=== PATIENT | female | born 1975 | race Caucasian/White ===

== ENCOUNTER 2022-08-09 20:52 | Emergency (ER) | payer OTHER ==
[~2022-08-09] VITALS: Ht 167.6 cm; Wt 77.1 kg
[~2022-08-09 20:52] MED LIST: IBUPROFEN600 MG PO; NORCO 5-325 TA1 EACH PO; SOMA350 MG PO; ZOFRAN ODT4 MG PO
[2022-08-09] MEDS ORDERED: LEVOTHYROXINE100 MCG PO (21:09)
== END 2022-08-09 21:51 | disposition home or self-care (01) ==
LOC: ED 20:52
DX: S80.01XA Contusion of right knee, initial encounter (principal); E03.9 Hypothyroidism, unspecified; Z79.899 Other long term (current) drug therapy; W01.0XXA Fall on same level from slipping, tripping and stumbling without subsequent striking against object, initial encounter
CPT/HCPCS: 73560; 99283-25

== ENCOUNTER 2023-04-16 06:26 | Day surgery (SDC) | payer OTHER ==
[2023-04-09 10:05] VITALS: BP 119/82
[~2023-04-16] VITALS: Ht 167.6 cm; Wt 80.0 kg
--- NOTE | ~2023-04-16 | OR ---
[facility] [address] [place], [place] [address] Draft DATE OF OPERATION: 04/16/2023 SURGEON: Brayan Mathews DO DRY MILL WORKER: Angeli Gonzalez M.D. PROCEDURE: Total laparoscopic hysterectomy, bilateral salpingectomy, excision of endometriosis and cystoscopy. PREOPERATIVE DIAGNOSIS: Endometriosis, abnormal uterine bleeding. POSTOPERATIVE DIAGNOSES: 1. Endometriosis with abnormal uterine bleeding. 2. Pelvic organ prolapse. 3. Prior history of tubal ligation. ANESTHESIA: General. COMPLICATIONS: None. ESTIMATED BLOOD LOSS: 20 mL. FINDINGS: Normal-appearing uterus, tubes, status post bilateral tubal ligation with Falope rings. Falope rings both still present. Normal-appearing bilateral ovaries. Cervix appears atrophic with stenotic external os. Numerous endometriosis lesions within the pelvis. Thick scarred lesions overlying the left uterosacral ligament just medial to the left ureter. Additional moderately scarred lesions overlying the right uterosacral ligament, one just anterior to the ureter and one directly overlying the right ureter as well as scattered powder blue superficial appearing lesions within the posterior cul-de-sac. INDICATIONS: The patient is a 47-year-old female with prior history of attempts at managing endometriosis and abnormal bleeding with IUD; however, IUD placement could not be PATIENT NAME: CHAD HOLT OPERATIVE REPORT DATE OF : 77 REPORT #: [id number] PHYSICIAN: BRAYAN MATHEWS DO PCP: SIA DUNNE MD REPORT IS CONFIDENTIAL AND NOT TO BE RELEASED WITHOUT AUTHORIZATION [facility] [address] [place], [place] [address] Draft completed on repeated attempts due to cervical stenosis. Due to the same reason endometrial tissue sampling could not be obtained in the office. Preoperative ultrasound showed a thin endometrial stripe at a low risk for endometrial hyperplasia. Risks and benefits of performing this procedure [facility] at a [facility] were discussed with the patient including the possible need for additional surgery if endometrial malignancy was detected postoperatively and/or if endometriosis with densely scarred involving bowel requiring robotic surgery for higher level of minimally invasive surgery. The patient verbalized understanding, strongly desires definitive surgical management, which she has consistently expressed that each of her appointments. Risks, benefits, and alternatives to laparoscopic hysterectomy, bilateral salpingectomy, excision of endometriosis, and cystoscopy were discussed, she elected to proceed. DESCRIPTION OF PROCEDURE: The patient was taken back to the operating room. She was given 2 g Ancef preoperatively. She was prepped and draped in normal fashion, positioned in dorsal lithotomy. Rangel catheter was placed. Weighted speculum was placed in the vagina. Anterior lip of the cervix was grasped with an Allis clamp. The external os of the cervix initially had to be perforated with small Hegar dilator, after which the cervix was easily sequentially dilated with Hegar dilators to accommodate VCare uterine manipulator after sounding uterus at 7.5 cm. The VCare uterine manipulator was placed without difficulty. All other instrumentation was removed from the pelvis and surgeon's gloves were changed and attention was turned to the abdomen. The infraumbilical incision was made with a scalpel under local anesthesia. This was carried down to the underlying layer of fascia with blunt and sharp dissection with Metzenbaum scissors. The fascia was grasped with hemostats, elevated and incised with Metzenbaum scissors. Inferior margin of fascia was intact with a stay suture of 0-Vicryl in a similar manner. Superior margin of fascia was tacked with a stay suture with 0-Vicryl. Peritoneum was entered bluntly. Finger sweep confirmed intraabdominal placement without adhesions and Palmira trocar was placed without difficulty. Pneumoperitoneum was achieved with CO2 gas and scope was introduced confirming intraabdominal placement and to better facilitate visualization of the pelvis. With these ports were placed, first left lower quadrant 5 mm scope after incision was made with scalpel under local anesthesia, this was performed without difficulty or complication under direct visualization; second on the right lateral aspect of the abdomen, 8 mm expanding trocar was placed without difficulty or complication under direct visualization. The patient was then placed in Trendelenburg positioning and with use of blunt graspers to retract the bowel, pelvic structures were surveyed with findings as noted above. Left distal fallopian tube was easily grasped and elevated and LigaSure device was used to cauterize and cut along the mesosalpinx excising the tube and the Falope ring to the level of the cornua at the level of the cornua, where prior transection had occurred. Utero-ovarian ligament was then cauterized and cut also using LigaSure device, which was used for the remainder case except as otherwise noted. Round ligament was cauterized and cut allowing for entry of PATIENT NAME: CHAD HOLT OPERATIVE REPORT DATE OF : 77 REPORT #: [id number] PHYSICIAN: BRAYAN MATHEWS DO PCP: SIA DUNNE MD REPORT IS CONFIDENTIAL AND NOT TO BE RELEASED WITHOUT AUTHORIZATION [address] [address] Draft the broad ligament. Anterior leaf of the broad ligament was dissected down anteromedially creating the start of the bladder flap. The posterior leaf was then dissected down posteriorly to the level of the uterosacral ligaments and medially all the way across to the right uterosacral ligament. Uterine vessels were skeletonized, cauterized, and cut. The attention was turned to the right side, in similar manner, the fimbriated end of the tube was grasped and elevated. Mesosalpinx was cauterized and cut, excising the right fallopian tube as well as the Falope ring to the level of the cornua at previous cornual transection. Tube was removed from the abdomen under direct visualization along with the ring. Right utero-ovarian ligament was then cauterized and cut. Round ligament was cauterized and cut allowing for entry into the broad ligament. Anterior leaf was dissected anteriorly to meet the prior dissection and posteriorly also to meet prior dissection. Uterine vessels were then skeletonized, cauterized, and cut. Cervicovaginal fascia was further dissected, then Harmonic Sonicision device was introduced and used to create the colpotomy, which was completed without difficulty staying within the guide of the [employer] uterine manipulator. The uterus and cervix were removed vaginally in one piece. Vaginal packing was placed. Surgeon's gloves were again changed and attention was returned to the abdomen. Pelvis was suction irrigated with warm sterile saline. Excellent hemostasis was noted. Vaginal cuff was closed using the V-Loc suture on an EndoStitch device working from right apex to left and then back towards right apex per hvac design mechanical engineer guidelines following cuff closure. Excellent hemostasis was again noted. At this point, decision was made to attempt excision of endometriosis lesions, particularly overlying the left uterosacral ligament. The ureter was well visualized lateral to the area of endometriosis, which was grasped with laparoscopic Cristina and excised using laparoscopic scissors. Underlying bleeding was noted, which was cauterized with monopolar spatula. Other endometriosis lesions were re-examined and due to significant current concern for proximity to the ureter, superficial lesions not overlying the ureter were cauterized with monopolar spatula, while deep scarring lesion overlying the ureter and superficial lesion overlying the right ureter could not be safely excised today. Tisseel hemostatic device was applied to areas of peritoneal dissection, after which excellent hemostasis was noted. Abdomen was desufflated under direct visualization. Infraumbilical skin incision fascia was closed with Vicryl in a running fashion. Stay sutures were tied overlying the initial closure and skin was closed with 4-0 Monocryl. Rangel catheter was removed, cystoscope was introduced. Bladder was inspected, noted to be intact with bubbles present in the dome. No evidence of puckering suture or bleeding were noted. Bilateral ureteral efflux was noted very quickly with clear urine efflux. All instrumentation was removed. Sponge and instrument counts were correct. The patient was taken to the recovery room in stable and satisfactory condition. PATIENT NAME: CHAD HOLT OPERATIVE REPORT DATE OF : 77 REPORT #: [id number] PHYSICIAN: BRAYAN MATHEWS DO PCP: SIA DUNNE MD REPORT IS CONFIDENTIAL AND NOT TO BE RELEASED WITHOUT AUTHORIZATION [facility] [address] [place] [id number] Draft Brayan Mathews DO EMZ/MODL /[id number] Copies: ~ PATIENT NAME: CHAD HOLT BOBO OPERATIVE REPORT DATE OF : 77 REPORT #: [id number] PHYSICIAN: BRAYAN MATHEWS DO PCP: SIA DUNNE MD REPORT IS CONFIDENTIAL AND NOT TO BE RELEASED WITHOUT AUTHORIZATION
[~2023-04-16 06:26] MED LIST changes: +LEVOTHYROXINE100 MCG PO; +NEURONTIN300 MG PO
[2023-04-16 07:20] VITALS: BP 129/63
--- NOTE | 2023-04-16 07:57 | NUR ---
5042 PT ADMITTED SOME ANXIETY. TALKED OF SHARED EXPERIENCES. CONSENTED TO [facility]. PRAYED FOR SUCCESSFUL PROCEDURE AND ABIDING PEACE.
--- NOTE | 2023-04-16 12:54 | NUR ---
04/16/23 1254 Frances Flores 1236- PT ARRIVES TO UNIT VIA STRETCHER FROM OR. PT EYES CLOSED, RESPIRATIONS ARE EVEN AND UNLABORED, NO SIGN OF DISTRESS. O2 >90% VIA RA VIA PULSE OX AT THIS TIME. WARM BLANKETS AND BEAR HUGGER USED D/T PT REPORT OF FEELING COLD/SHAKING. PT APPEARS COMFORTABLE AT THIS TIME. 1240- PT REPORTS PAIN 4/10 AT THIS TIME, [facility] [employer] GIVES FENTANYL (SEE BLUE SHEET). 1246- 2 L OF O2 VIA NC IN PLACE D/T DSAT TO 86% ON RA. PT APPEARS COMFORTABLE AT THIS TIME AND RESTING W/EYES CLOSED. RESPIRATIONS ARE EVEN AND UNLABORED. PT ENCOURAGED TO COUGH AND DEEP BREATH. PT RESPONSIVE TO VERBAL STIMULI.
[2023-04-16 14:03] VITALS: BP 107/61
--- NOTE | 2023-04-16 14:15 | NUR ---
1405: PATIENT BACK IN DAY SURGERY ROOM FROM PACU. RATES PAIN 10/19. VS CHECKED. ABDOMEN WITH 3 LAP SITES WITH SMALL AMOUNT OF DRAINAGE. PERIPAD IN PLACE WITH NO DRAINAGE. IV SITE WNL. SCDs ON. ICE WATER PLACED AT BEDSIDE ALONG WITH CRACKERS AND PUDDING. CALL LIGHT WITHIN REACH.
--- NOTE | 2023-04-16 14:35 | NUR ---
PT RESTING IN BED WITH 2L VIA NC IN PLACE, SATS 98%. PULSE OXIMETER IN PLACE AND O2 REMOVED AT THIS TIME, PT CONT TO SAT GREATER THAN 94% ON RA. PT FAMILY AT BEDSIDE, CALL LIGHT WITHIN REACH.
[2023-04-16 15:10] VITALS: BP 110/63
--- NOTE | 2023-04-16 15:33 | NUR ---
[id number]: PT TOLERATES PO WELL WITH NO C/O NAUSEA. PT ASKS THIS RN, "SO WHEN CAN I LEAVE?" PT EDUCATED ABOUT DC CRITERIA AND ENCOURAGED TO USE CALL LIGHT WITH URGE TO VOID. IV SL AND ICED WATER REFILLED. PT FAMILY CONTINUES AT BEDSIDE, CALL LIGHT WITHIN REACH.
[2023-04-16 16:10] VITALS: BP 109/61
--- NOTE | 2023-04-16 16:28 | NUR ---
1610: PT RESTING IN BED, DENIES URGE TO VOID. PT RATES PAIN 1/10 WHILE RESTING BUT STATES 5/10 WITH ANY MOVEMENT, "THAT IS WHY I DON'T WANT TO GET UP TO PEE." PT SITS AT SIDE OF BED PRIOR TO STANDING, STATES SOME DIZZINESS. PT ABLE TO AMBULATE WITH SLOW, STEADY GAIT TO BATHROOM WITH RN ASSIST. PT VOIDS 250 MLS BRIGHT YELLOW URINE WITH RED TINGE, NO CLOTS NOTED. PT BACK TO DS RM 12 TO GET DRESSED, DAUGHTER AT BEDSIDE.
--- NOTE | 2023-04-16 17:27 | NUR ---
[id number]: DC INSTRUCTIONS PRESENTED VERBALLY AND WRITTEN TO PT AND DAUGHTER. PT TRANSFERS SELF FROM STRETCHER TO WC AND DC'S FROM DS RM 12 TO DAUGHTER IN PERSONAL VEHICLE TO HOME.
--- NOTE | 2023-04-19 16:17 | PATH ---
[facility] [address] [place], [place] [address] Signed SPECIMEN(S): A UTERUS, CX, BILAT TUBES SPECIMEN(S): B LEFT UTEROSACRAL ENDOMETRIOSIS SPECIMEN SOURCE: A. UTERUS, CX, BILAT TUBES B. LEFT UTEROSACRAL ENDOMETRIOSIS CLINICAL HISTORY: Endometriosis, abnormal uterine bleeding. FINAL PATHOLOGIC DIAGNOSIS: A. Uterus, cervix, bilateral tubes: - Secretory endometrium, negative for atypical features or evidence of malignancy. - Endo and ectocervix with reactive features, negative for dysplasia. - Benign bilateral oviducts. B. Left uterosacral endometriosis: - Endometriosis, benign. JVR:[id number] MICROSCOPIC EXAMINATION: Histologic sections of all submitted blocks are examined by light microscopy. These findings, together with the gross examination, support the pathologic diagnosis. GROSS DESCRIPTION: A. The specimen, labeled and designated "Fly, uterus, cervix, bilateral fallopian tubes," is received in formalin and consists of uterus and cervix with undesignated and bilateral fallopian tubes. The uterus measures 4.2 cm cornu to cornu, 3.5 cm anterior to posterior and 7.0 cm superior to inferior serosal surface is pink-sandoval, smooth. The uterus weighs 79 g. The ectocervix is pink-sandoval, smooth and measures 2.9 x 3.2 cm. Cervical neck is inked. Sectioning through the cervix reveals a pink-sandoval, homogenous tissue. The cervix is entirely submitted due to patient history. The endometrial cavity measures 2.0 x 2.0 cm. It is lined with pink-sandoval, smooth endometrium. Sectioning through the myometrium reveals pink-sandoval, homogenous tissue. The myometrium measures 1.9 cm in thickness. The endometrium measures up to 0.2 cm in thickness. Both fallopian tubes show fimbria and violaceous and smooth serosa. The first PATIENT NAME: CHAD HOLT PATHOLOGY DATE OF : 77 REPORT #: [id number] PHYSICIAN: MI PATHOLOGY PCP: SIA DUNNE MD REPORT IS CONFIDENTIAL AND NOT TO BE RELEASED WITHOUT AUTHORIZATION [facility] [address] [place], [place] [address] Signed fallopian tube measures 4.5 cm in length and 0.7 cm in diameter. The second fallopian tube measures 3 cm in length and 0.8 cm in diameter. Sectioning through both fallopian tubes is grossly unremarkable. Cassette Summary: (A1-A2) Cervix, 12-3 o'clock (A3-A7) Cervix, 3-6 o'clock (A8-A10) Cervix, 6-9 o'clock (A11-A12) Cervix, 9-12 o'clock (A13) First fallopian tube, door to door sales representative sections (A14) Second fallopian tube, door to door sales representative sections (A15) Endomyometrium, door to door sales representative sections B. The specimen, labeled and designated "Fly, left uterosacral endometriosis," is received in formalin and consists of three pieces of irregular shaped, pink-sandoval, focally congested fibromembranous tissue that aggregate measure 1.7 x 0.8 x 0.4 cm. Sectioning through the specimen is grossly unremarkable. Entirely submitted in (B1). JS (under the direct supervision of a pathologist) The Gross Description was prepared using a voice recognition system. The report was reviewed for accuracy; however, sound-alike word errors, addition and/or deletions may occur. If there is any question about this report, please contact Client Services. PERFORMING LABORATORY: Technical component was performed by [employer], [address] [place] [id number] (CLIA# [id number]). Professional interpretation was performed by [facility], [address] [place] [id number] (CLIA#: [id number]). Diagnostician: Luis Antonio Pacheco MD Pathologist Electronically Signed 04/19/2023 Copies: ~ PATIENT NAME: CHAD HOLT BOBO PATHOLOGY DATE OF : 77 REPORT #: [id number] PHYSICIAN: Materia NITIN PCP: SIA DUNNE MD REPORT IS CONFIDENTIAL AND NOT TO BE RELEASED WITHOUT AUTHORIZATION
== END 2023-04-16 16:44 | disposition home or self-care (01) ==
LOC: OPS 06:26 → DS 06:26 → OPS 07:30
PROVIDERS: ATTEND Obstetrics & Gynecology
PROC: 0UT94ZZ Resection of Uterus, Percutaneous Endoscopic Approach (ICD-10-PCS; principal; 2023-04-16 09:00)
PROC: 0UT74ZZ Resection of Bilateral Fallopian Tubes, Percutaneous Endoscopic Approach (ICD-10-PCS; 2023-04-16 09:00)
DX: N80.A62 Endometriosis of left ureter, unspecified depth (principal); Z98.51 Tubal ligation status; E03.9 Hypothyroidism, unspecified; E78.5 Hyperlipidemia, unspecified
CPT/HCPCS: 00840; J0131; J0690; J1100; J1170; J1885; J2001; J2704; J3010; J3475; J3490; J7121

== ENCOUNTER 2025-04-08 10:07 | Emergency (ER) | payer OTHER ==
[~2025-04-08] VITALS: Ht 167.6 cm; Wt 79.2 kg
[2025-04-08] MEDS ORDERED: LEVOTHYROXINE150 MCG PO (10:42)
[2025-04-08] MEDS ORDERED: LIDODERM1 EACH TOP (12:22)
[2025-04-08] MEDS ORDERED: NAPROSYN500 MG PO (12:22)
[2025-04-08 12:31] VITALS: BP 115/89
== END 2025-04-08 12:32 | disposition home or self-care (01) ==
LOC: ED 10:07
DX: S22.32XA Fracture of one rib, left side, initial encounter for closed fracture (principal); W01.10XA Fall on same level from slipping, tripping and stumbling with subsequent striking against unspecified object, initial encounter; Z88.8 Allergy status to other drugs, medicaments and biological substances; Z79.899 Other long term (current) drug therapy
CPT/HCPCS: 71101; 99284